=== PATIENT | female | born 1970 | race Caucasian/White ===

== ENCOUNTER 2018-06-22 10:57 | Inpatient (IN) | payer OTHER ==
[~2018-06-22] VITALS: Ht 180.3 cm; Wt 90.7 kg
== END 2018-06-29 10:34 | disposition home or self-care (01) | DRG 743 ==
LOC: O/R 06-26 05:10 → OB/GYN 06-26 05:10 → SURH 06-26 09:33 → OB/GYN 06-26 14:20
PROVIDERS: ADMIT Obstetrics & Gynecology
PROC: 0UT90ZZ Resection of Uterus, Open Approach (ICD-10-PCS; principal; 2018-06-26 10:00)
DX: D25.1 Intramural leiomyoma of uterus (principal); D25.0 Submucous leiomyoma of uterus; D25.2 Subserosal leiomyoma of uterus; N84.0 Polyp of corpus uteri; N73.6 Female pelvic peritoneal adhesions (postinfective); K66.8 Other specified disorders of peritoneum; D64.89 Other specified anemias